=== PATIENT | male | born 1985 | race Caucasian/White ===

== ENCOUNTER 2021-03-24 09:06 | Emergency (ER) | payer BC ==
[~2021-03-24] VITALS: Ht 182.9 cm; Wt 100.0 kg
[2021-03-24 12:16] LABS: BASOPHILS % 0.4 % (0.0-2.0); HEMATOCRIT. 49.9 % (42.0-52.0); HEMOGLOBIN. 17.3 g/dL (14.0-18.0); LYMPHOCYTES % 29.2 % (20.0-50.0); MEAN CORPUSCULAR HEMOGLOBIN 30.4 pg (28.0-32.0); MEAN CORPUSCULAR VOLUME 87.8 fL (80.0-94.0); MEAN PLATELET VOLUME 8.7 fl (7.4-10.4); MONOCYTES % 12.5 % (2.0-8.0); NEUTROPHILS % 57.9 % (40.0-76.0); PLATELET 191 x1000/uL (130-400); RED BLOOD CELL COUNT 5.68 mill/uL (4.7-6.1); RED CELL DISTRIBUTION WIDTH 14.5 % (11.6-14.6)
[2021-03-24 12:24] LABS: CHLORIDE 102 mEq/L (98-107)
[2021-03-24] MEDS ORDERED: OXYM30SP26 BOTHNSTRLS (13:01)
[2021-03-24] MEDS ORDERED: GUAI120017 MT (13:01)
[2021-03-24 13:15] VITALS: BP 131/84
== END 2021-03-24 13:17 | disposition home or self-care (01) ==
LOC: ER 09:06
DX: J20.9 Acute bronchitis, unspecified (principal); Z20.822 Contact with and (suspected) exposure to COVID-19
CPT/HCPCS: 36415; 71045; 80048; 85025; 87635; 87804; 99284